=== PATIENT | female | born 1980 | race Caucasian/White ===

== ENCOUNTER 2018-03-25 10:15 | Emergency (ER) | payer OTHER ==
[~2018-03-25] VITALS: Ht 170.2 cm; Wt 75.0 kg
[2018-03-25] MEDS ORDERED: IBUPROFEN 600MG TABLET PO ONE (11:30)
[2018-03-25 12:51] VITALS: BP 108/68
== END 2018-03-25 12:52 | disposition home or self-care (01) ==
LOC: ER 10:15
DX: S20.20XA Contusion of thorax, unspecified, initial encounter (principal); E11.9 Type 2 diabetes mellitus without complications; F17.210 Nicotine dependence, cigarettes, uncomplicated; Z88.5 Allergy status to narcotic agent; Z98.51 Tubal ligation status; W01.198A Fall on same level from slipping, tripping and stumbling with subsequent striking against other object, initial encounter; Y93.89 Activity, other specified; Y92.89 Other specified places as the place of occurrence of the external cause
CPT/HCPCS: 71045; 71100; 81025; 99283

== ENCOUNTER 2018-04-21 15:44 | Emergency (ER) | payer OTHER ==
[~2018-04-21] VITALS: Ht 170.2 cm; Wt 77.0 kg
[2018-04-21 15:58] VITALS: BP 136/82
== END 2018-04-21 17:43 | disposition home or self-care (01) ==
LOC: ER 15:49
DX: E10.8 Type 1 diabetes mellitus with unspecified complications (principal); F17.200 Nicotine dependence, unspecified, uncomplicated; Z98.890 Other specified postprocedural states; Z98.51 Tubal ligation status; Z88.5 Allergy status to narcotic agent
CPT/HCPCS: 82962; 99283